=== PATIENT | female | born 1980 | race Hispanic/Latino ===

== ENCOUNTER 2020-01-13 08:08 | Emergency (ER) | payer BC ==
[2020-01-13] MEDS ORDERED: Ondansetron PF 4 MG/2 ML Vial ONE (08:43)
[2020-01-13] MEDS ORDERED: Ketorolac Tromethamine 30 MG/ML VIAL ONE (08:43)
[2020-01-13 08:53] LABS: Bilirubin Negative (Negative); Blood, Urine Negative (Negative); Clarity Clear (Clear); Glucose, Urine (Dipstick) Normal (Negative); Ketone, Urine Negative (Negative); Leukocyte Negative Leu/uL (Negative); Nitrite Negative (Negative); Protein, Urine (Dipstick) 10 mg/dL (Neg-Trace); Specific Gravity, Urine 1.027 (1.002-1.036); Urobilinogen Normal mg/dL (Less than 2)
[2020-01-13 09:01] LABS: #Basophils 0.1 thou/uL (0.0-0.2); #Eosinphils 0.3 thou/uL (0.0-0.7); #Lymphocytes 2.6 thou/uL (1.20-3.40); #Monocytes 0.5 thou/uL (0.11-0.59); #Neutrophils 4.8 thou/uL (1.40-6.50); %Basophils 0.8 % (0.0-1.0); %Eosinophils 3.3 % (0.0-10.0); %Lymphocytes 31.6 % (21.0-51.0); %Monocytes 6.4 % (0.0-10.0); %Neutrophils 57.9 % (42.0-75.0); Hemoglobin 14.3 g/dL (12.0-16.0); Mean Corpuscular HGB CONC 33.8 g/dL (32.0-36.0); Mean Corpuscular Hemoglobin 29.5 pg (27.0-31.0); Mean Corpuscular Volume 87.3 fL (78.0-98.0); Mean Platelet Volume 6.9 fL (7.4-10.4); Platelet Count 425 thou/uL (130-400); RBC Distribution Width 12.4 % (11.5-14.5); Red Blood Cell (RBC) Count 4.84 mill/uL (4.20-5.40); White Blood Cell (WBC) Count 8.3 thou/uL (4.8-10.8)
[2020-01-13 09:10] LABS: BHCG - Serum Negative (NEGATIVE); Pregs Control Background? CLEAR/WHITE (CLR/WHITE); Pregs Control Bar Appear? YES (CONTROL BAR)
[2020-01-13 09:26] LABS: ALT (SGPT) 17 U/L (8-55); AST (SGOT) 12 U/L (5-34); Alkaline Phosphatase 77 U/L (40-110); Anion Gap 11 mmol/L (10-20); BUN (Urea Nitrogen) 17 mg/dL (7.0-18.7); Bilirubin, Total 0.6 mg/dL (0.2-1.2); Calc. Creatinine Clearance 0 mL/min (70-130); Calcium 9.2 mg/dL (7.8-10.44); Carbon Dioxide 27 mmol/L (22-29); Chloride 102 mmol/L (98-107); Estimated GFR-MDRD Greater than 90; Globulin 3.4 g/dL (2.4-3.5); Glucose 105 mg/dL (70-105); Potassium 3.7 mmol/L (3.5-5.1); Protein, Total 7.4 g/dL (6.0-8.3); Sodium 136 mmol/L (136-145)
--- NOTE | 2020-01-13 10:26 | CT ---
CT ABDOMEN AND PELVIS WITH IV CONTRAST 01/13/2020 CLINICAL INFORMATION: Right lower quadrant abdominal pain. COMPARISON: 11/27/2016. Technique: Multiple contiguous axial CT images are obtained through the abdomen and pelvis with IV contrast. Cor onal reformatted images are provided. FINDINGS: Lower Chest: Subsegmental atelectasis right lung base. Vessels: Abdominal aorta is normal in caliber. Abdomen: Portal vein:Patent Gallbladder: Surgically absent. Liver: Low density area seen in the right hepatic lobe which is just to the liver and is thought to m ore likely be artifactual as opposed to an actual lesion. Similar finding but more subtle in appearance was seen on study in 2017 and appear to have also been present on study in 2011. Liver oth erwise has a normal CT appearance. Spleen: within normal limits. Pancreas: within normal limits. Adrenals: within normal limits. Kidneys: within normal limits. Bowel: Colonic diverticulosis seen throughout the colon. There is minimal stranding adjacent to the r egion of the ascending colon which is in region of multiple diverticula, and these findings are likely related to mild focal diverticulitis. No significant wall thickening is appreciated. The appen tania is closely adjacent to this region but is filled with gas and normal in caliber. Loops of small bowel are normal in caliber Peritoneum: No ascites or free air; no fluid collection. Mesentery and Retroperitoneum: No enlarged mesenteric or retroperitoneal lymph nodes. Abdominal Wall: within normal limits. Pelvis: Reproductive Organs: Low density area seen within the cervix probably related to a nabothian cyst, bu t this is difficult to adequately evaluate on this examination. There is a small hypodense lesion with heterogeneous enhancement measuring 1.5 cm in the left aspect of the uterine fundus. There is al so nodular area of prominence seen in the more posterior aspect of the uterine fundus without well defined margins. Findings May be related to uterine fibroids. A 2.87 a low-density structure is seen in the right adnexa probably representing a small right ovarian cyst. Bladder: within normal limits. Bones: No suspicious lytic or sclerotic osseous lesions. IMPRESSION: 1. Findings worrisome for diverticulitis involving the most proximal ascending colon. Multiple coloni c diverticula are seen throughout the colon. 2. Probable uterine fibroids with a low-density area in the right aspect of the cervix which may repr esent a nabothian cyst but is difficult to adequately evaluate on this exam. In addition, there is a hypodense cystic structure right adnexa probably due to a right ovarian cyst. Pelvic ultrasound may be helpful for further evaluation. 3. Postcholecystectomy changes.
== END 2020-01-13 11:14 | disposition home or self-care (01) ==
LOC: ERS 08:08
DX: K57.32 Diverticulitis of large intestine without perforation or abscess without bleeding (principal); N83.201 Unspecified ovarian cyst, right side
CPT/HCPCS: 74177; 80053; 81003; 84703; 85025; 96374; 96375; J1885; J2405